=== PATIENT | male | born 1995 | race Two or more races ===

== ENCOUNTER 2021-06-13 00:02 | Emergency (ER) | payer OTHER ==
[~2021-06-13] VITALS: Ht 185.4 cm; Wt 68.0 kg
== END 2021-06-13 02:13 | disposition home or self-care (01) ==
LOC: ER 00:02
DX: S13.4XXA Sprain of ligaments of cervical spine, initial encounter (principal); V49.9XXA Car occupant (driver) (passenger) injured in unspecified traffic accident, initial encounter; Y93.89 Activity, other specified; Y92.488 Other paved roadways as the place of occurrence of the external cause; Y99.8 Other external cause status

== ENCOUNTER 2021-09-22 15:57 | Emergency (ER) | payer OTHER ==
[~2021-09-22] VITALS: Ht 185.4 cm; Wt 68.0 kg
== END 2021-09-22 21:54 ==
LOC: ER 15:57
DX: F32.A Depression, unspecified (principal)

== ENCOUNTER 2025-04-06 09:51 | Emergency (ER) | payer OTHER ==
[~2025-04-06] VITALS: Ht 185.4 cm; Wt 68.0 kg
[2025-04-06] MEDS ORDERED: NEOMYCIN SULFATE/DEX NA PH OPHT DROPS OP ONE (11:30)
[2025-04-06] MEDS ORDERED: MAXITROL EYE DRO5 ML OP (11:33)
== END 2025-04-06 12:33 | disposition home or self-care (01) ==
LOC: ER 09:52
DX: H66.001 Acute suppurative otitis media without spontaneous rupture of ear drum, right ear (principal); Z91.013 Allergy to seafood